=== PATIENT | female | born 2000 | race Caucasian/White ===

== ENCOUNTER 2020-07-30 18:13 | Emergency (ER) | payer MEDICAID ==
[~2020-07-30] VITALS: Ht 170.2 cm; Wt 56.7 kg
[2020-07-30] MEDS ORDERED: Bacitracin Oint UD TOPIC ONE (18:30)
--- NOTE | 2020-07-30 18:45 | NUR ---
pt states seen at hospital for R 5th finger cellulitis. pt states sensation intact, cap refill <3 sec. pt given abx for infection, uknown type. pt denies fever, cough. pt denies allergies. unable to determine pmh. pt states pain in finger, unable to give number.
--- NOTE | 2020-07-30 18:46 | Emergency Room Report ---
History of Present Illness General Chief Complaint: To Be Triaged Present Illness HPI 19 YO female presents to the ED E/o right finger laceration x 2 weeks. Pt. reports initially she had an infected splinter. She reports approx 2 weeks ago she was seen at another ED, admitted to the Hospital and was given Abx, and they " cut her finger open". Pt. reports she couldn't stay there any longer and left against medical advice. Pt. denies new trauma or fall. She reports they never gave her stitches. She reports she has not followed up since leaving [facility]. Pt. reports 6/10 in severity pain and tenderness. She reports the "cut is still healing". Pt. denies bleeding or pus draining from wound. She reports having normal sensation. She is right hand dominant. She is requesting new bandaging to be placed and specifically verbalizes not having any intentions on staying long in the ED. She denies fevers or chills. She denies PmHx. She denies taking any medications. She reports being UTD with all vaccinations. She denies medication allergies and denies or suspicion for . Allergies: Coded Allergies: No Known Allergies (Unverified , 07/30/20) Patient History Past Medical History: see triage record Past Surgical History: none Pertinent Family History: none Now: No Immunizations: UTD Reviewed Nursing Documentation: PMH: Agreed; PSxH: Agreed Review of Systems All Other Systems: negative except mentioned in HPI Physical Exam Sp02 EP Interpretation: reviewed, normal General Appearance: no apparent distress, alert, GCS 15, non-toxic Head: normocephalic, atraumatic Eyes: bilateral eye normal inspection, bilateral eye PERRL ENT: hearing grossly normal, normal voice Neck: full range of motion Respiratory: lungs clear, normal breath sounds, speaking full sentences Cardiovascular #1: regular rate, rhythm, normal capillary refill Musculoskeletal: normal range of motion - pain with flexion of right fith digit and decrease in ROM at the PIP joint. not in fixed flexed position. , gait/station normal, non-tender Neurologic: alert, motor strength/tone normal, oriented x3, sensory intact, responsive, speech normal, grossly normal Psychiatric: judgement/insight normal Skin: laceration - Surgical laceration to the medial aspect of the right 5th digit, approx. 2 cm in length. Surrounding erythema, there is erythema and swelling along the volar aspect of the finger as well. No involvement of the distal portion of the right 5th finger. Pt. with difficulty bending digit at the PIP joint. laceration appears to be healing by secondary intent. normal cap refill. NVI, other - No streaking noted. Lymphatic: no adenopathy Medical Decision Making JENARO Attestation Dr. Kidd is my supervising Physician whom patient management has been discussed with. Homeless Attestation I, The treating provider, Leni EASON, has assessed and agrees that patient is medically stable for discharge to an outpatient disposition. Diagnostic Impression: Primary Impression: Laceration Additional Impression: Cellulitis Qualified Codes: L03.011 - Cellulitis of right finger ER Course 19 YO female presents to the ED E/o right finger laceration x 2 weeks. Pt. reports initially she had an infected splinter. She reports approx 2 weeks ago she was seen at another ED, admitted to the Hospital and was given Abx, and they " cut her finger open". Pt. reports she couldn't stay there any longer and left against medical advice. Pt. denies new trauma or fall. She reports they never gave her stitches. She reports she has not followed up since leaving [facility]. Pt. reports 6/10 in severity pain and tenderness. She reports the "cut is still healing". Pt. denies bleeding or pus draining from wound. She reports having n ormal sensation. She is right hand dominant. She is requesting new bandaging to be placed and specifically verbalizes not having any intentions on staying long in the ED. She denies fevers or chills. She denies PmHx. She denies taking any medications. She reports being UTD with all vaccinations. She denies medication allergies and denies or suspicion for . Ddx considered but are not limited to laceration, tendon injury, cellulitis, amputation Vital signs: mild tachycardia, remaning VS are WNL, pt. is afebrile H&PE are most consistent with: Surgical laceration to the medial aspect of the right 5th digit, approx. 2 cm in length. Surrounding erythema, there is erythema and swelling along the volar aspect of the finger as well. No involvement of the distal portion of the right 5th finger. Pt. with difficulty bending digit at the PIP joint. laceration appears to be healing by secondary intent. normal cap refill. NVI. Localized cellulitis of the right 5th digit, worry for potential worsening of infection if not aggressively treated with oral abx. No evidence of tenosynovitis at this time. ORDERS: none required at this time, the diagnosis is clinical ED INTERVENTIONS: -Keflex 500mg PO -Bactrim DS 875mg PO -Bacitracin and sterile dressing is applied. Attempt to provide 3 days supply of rx'd medications was unsuccessful. Discussed with patient that it is imperative that she be compliant with oral antibiotics and that she MUST FOLLOW UP With hand specialist. I reiterated to pt. that failure to comply with medical advise and prescribed medications may lead to requiring inpatient IV antibiotics or could cause severe infection, with permanent disability or loss of limb on her dominant hand. D/w pt. that severe infection could lead to . Pt. reports she is currently homeless but verbally agrees and promises that she will fill her Rx's and take her medications. D/w pt. regarding generic medications and possibility of [employer]Pay at pharmacy. Pt. verbalizes having the ability to pay for her prescriptions. Pt. verbalizes her understanding and agreement with proposed treatment Plan. DISCHARGE: At this time pt. is stable for d/c to home. Will provide printed patient care instructions, and any necessary prescriptions. Care plan and follow up instructions have been discussed with the patient prior to discharge. Status: improved Disposition: HOME, SELF-CARE Condition: Stable Scripts Cephalexin* (KEFLEX*) 500 Mg Capsule 500 MG ORAL EVERY 12 HOURS for 7 Days, #14 CAP 0 Refills Prov: Leni Ramirez 07/30/20 Trimethoprim/Sulfamethoxazole 160/800* (BACTRIM DS TABLET*) 1 Each Tablet 1 TAB ORAL TWICE A DAY for 4 Days, #8 TAB Prov: Leni Ramirez 07/30/20 Trimethoprim/Sulfamethoxazole 160/800* (BACTRIM DS TABLET*) 1 Each Tablet 1 TAB ORAL TWICE A DAY for 3 Days, #6 TAB Prov: Leni Ramirez 07/30/20 Referrals: [facility] Patient Instructions: Nonsutured Laceration Care Additional Instructions: Take medications as directed. Follow up with a Primary Care Provider in 3-5 days, even if your symptoms have resolved. HAND SPECIALIST EVALUATION IS REQUIRED within 3 days. --Please review list of primary care clinics, if you do not already have a primary care provider Return sooner to ED if new symptoms occur, or current symptoms become worse. - Please note that this Emergency Department Report was dictated using [employer] nurse technology software, occasionally this can lead to erroneous entry secondary to interpretation by the dictation equipment. Leni Ramirez Jul 30, 2020 18:46
[2020-07-30 18:54] VITALS: BP 142/66
[2020-07-30] MEDS ORDERED: BACTRIM DS TAB1 EAC1 ORAL ×2 (19:25→19:26)
[2020-07-30] MEDS ORDERED: CEPHALEXIN500 MG ORAL ×3 (19:25→19:31)
[2020-07-30] MEDS ORDERED: Cephalexin 500mg cap ORAL ONE (19:30)
[2020-07-30] MEDS ORDERED: Bactrim-DS 1 tab ORAL ONE (19:30)
--- NOTE | 2020-07-30 19:41 | NUR ---
ER DISCHARGE NOTE: Patient is cleared to be discharged per ERMD, pt is aox4, on room air, with stable vital signs. pt was given dc and prescription instructions, pt was able to verbalize understanding, pt id band removed. pt is able to ambulate with steady gait. pt took all belongings.
[2020-07-30 19:42] VITALS: BP 142/66
== END 2020-07-30 19:43 | disposition home or self-care (01) ==
LOC: EMR 18:58
DX: S61.216A Laceration without foreign body of right little finger without damage to nail, initial encounter (principal); L03.011 Cellulitis of right finger; X58.XXXA Exposure to other specified factors, initial encounter; Y93.89 Activity, other specified; Y92.238 Other place in hospital as the place of occurrence of the external cause
CPT/HCPCS: 99282